=== PATIENT | male | born 1980 | race Asian ===

== ENCOUNTER 2017-11-24 18:00 | Emergency (ER) | payer SELFPAY ==
--- NOTE | 2017-11-24 18:16 | EDPHY ---
General Time Seen by Provider: 11/24/17 18:07 Narrative: CHIEF COMPLAINT: Diarrhea, bloody stools HISTORY OF PRESENT ILLNESS: Patient presents with complaints of diarrhea and bloody stools. He developed diarrhea yesterday. He had 1 episode. He feels that it was blood tinged last night. This morning he awoke and had some abdominal discomfort in the left lower side. He had 3 episodes of diarrhea today which were bloody in the stool. He had no painful bowel movement but did have some lower abdominal pain. Some nausea but no vomiting. No chest pain. No upper abdominal pain. No instrumentation of the rectum. No anticoagulation. No history of anti- inflammatory use, inflammatory bowel or diverticulosis. No other associated complaints or modifying factors REVIEW OF SYSTEMS: 10 systems were reviewed and negative with the exception of the elements mentioned in the history of present illness. PCP: None SPECIALISTS: None PAST MEDICAL HISTORY: None PAST SURGICAL HISTORY: None SOCIAL HISTORY: Nonsmoker. Lives here independently. FAMILY HISTORY: Noncontributory EXAMINATION: General Appearance: Alert, no distress Head: normocephalic, atraumatic Eyes: Pupils equal and round, no conjunctival pallor or injection ENT, Mouth: Mucous membranes moist Neck: Normal inspection, supple, non-tender Respiratory: Lungs are clear to auscultation Cardiovascular: Regular rate and rhythm Gastrointestinal: Abdomen is soft and nondistended. Mild left lower quadrant tenderness. There is no tympany rigidity. No palpable mass or guarding. No CVA tenderness. Bowel sounds present all 4 quadrants. Back: non-tender, no bony abnormalities Neurological: A&O, nonfocal, normal gait Skin: Warm and dry, no rash Extremities: Nontender, no pedal edema Psychiatric: Mood and affect normal DIFFERENTIAL DIAGNOSES: Including but not limited to colitis, diverticulitis, diverticulosis, internal hemorrhoid, external hemorrhoid, inflammatory bowel, irritable bowel MDM: 6:05 p.m. Diarrhea x2 days with 3 episodes of bloody stools over the past 24 hr. He has mild lower abdominal pain but a nonsurgical abdominal examination at this time. Vital signs at checking were mildly tachycardic, on examination he was with normal limits. He is afebrile. He does not meet SIRS criteria. He is not vomiting. No use of anticoagulants. No previous diagnosis of inflammatory bowel or diverticulosis. Laboratory studies pending. 7:00 p.m. Laboratory studies reveal mild leukocytosis without any anemia. Given the patient's confluence of symptoms, I discussed with Dr. Meyers and we are in agreement that CT scan abdomen pelvis is indicated at this time. Patient has consented to this. I have re-evaluated at this time he remains comfortable in no acute distress 7:35 p.m. Notified by radiologist Dr. Berger. We discussed the CT scan findings of the abdomen pelvis. There is evidence of descending colitis. No perforation or abscess. We discussed discharge home with oral antibiotics, pain medication nausea medication. We discussed follow up with primary care physician and GI physician for the tentative care. We discussed ED precautions for fever, increasing pain, intolerance of intake by mouth, constipation. Discussed case with Dr. Meyers. We are all in agreement. The patient is discharged home stable condition. SUPERVISION: Patient was independently examined, but I discussed the case with my secondary supervising physician Dr. Meyers CONSULTATION: None. - History Smoking Status: Never smoked - Objective Vital Signs: Initial Vital Signs Temperature (C) 98.1 F 11/24/17 18:02 Heart Rate 104 H 11/24/17 18:02 Respiratory Rate 18 11/24/17 18:02 Blood Pressure 114/84 H 11/24/17 18:02 O2 Sat (%) 95 11/24/17 18:02 O2 Delivery Mode Room Air Allergies/Adverse Reactions: No Known Allergies Allergy (Unverified 11/24/17 18:01) Home Medications: Medication Instructions Recorded Amoxicillin/Clavulanate Pot 875 mg PO BID #28 tab 11/24/17 [Augmentin 875 MG TAB (*)] Laboratory Results: Laboratory Results 11/24/17 18:15 11/24/17 18:15 Medications Given: Discontinued Medications Hydrocodone Bitart/Acetaminophen ([place] 5/325mg Prepack#6) 1 btl TAKEHOME EDNOW ONE Stop: 11/24/17 19:43 Last Admin: 11/24/17 19:55 Dose: 1 btl Amoxicillin/Clavulanate Potassium (Augmentin 875mg) 875 mg PO EDNOW ONE PRN Reason: Protocol Stop: 11/24/17 19:43 Last Admin: 11/24/17 19:55 Dose: 875 mg Sodium Chloride (Ns) 1,000 mls @ 0 mls/hr IV EDNOW ONE; Wide Open PRN Reason: Protocol Stop: 11/24/17 19:02 Last Admin: 11/24/17 19:20 Dose: 1,000 mls Ondansetron HCl (Zofran Odt 4 Mg Prepack#2) 1 btl TAKEHOME EDNOW ONE Stop: 11/24/17 19:43 Last Admin: 11/24/17 19:55 Dose: 1 btl Departure - Departure Disposition: Home, Routine, Self-Care Clinical Impression: Infective colitis, Hematochezia Condition: Good Instructions: Hydrocodone/Acetaminophen (By mouth), Amoxicillin/Clavulanate Potassium (By mouth), Ondansetron (By mouth), Colitis (ED) Additional Instructions: 1. Augmentin 875 mg twice daily for 14 days as prescribed. Your 1st dose was given here. Your next dose will be due tomorrow morning in you will need to go to the pharmacy to pick this up 2. The hydrocodone pain medication as provided every 4-6 hours as needed for pain. 3. Nausea medication, ondansetron, as provided every 6-8 hours as needed for nausea 4. Contact the primary care physician and GI physician on your chart tomorrow morning for outpatient definitive care 5. Return to emergency department for worsening pain, worsening bleeding, nausea , vomiting fever Referrals: Ehsan Altman MD [Medical Doctor] - As per Instructions Nicola Vang MD [Medical Doctor] - As per Instructions Prescriptions: Amoxicillin/Clavulanate Pot [Augmentin 875 MG TAB (*)] 875 mg PO BID #28 tab
[2017-11-24 18:36] LABS: PLATELET COUNT 230 10^3/uL (150-400)
[2017-11-24 18:57] LABS: INR 0.98 (0.83-1.16); PROTIME(PATIENT) 13.2 SEC (12.0-15.0)
[2017-11-24] MEDS ORDERED: NS 1,000 ML IV ONE (19:01)
[2017-11-24] MEDS ORDERED: IOPAMIDOL (ISOVUE-300) 100 ML BTL ONE (19:05)
[2017-11-24] MEDS ORDERED: ONDANSETRON 4MG PREPACK#2 BTL TAKEHOME ONE (19:42)
[2017-11-24] MEDS ORDERED: AMOXICILLIN/CLAVULANATE POT 875/125 MG TAB PO ONE (19:42)
[2017-11-24] MEDS ORDERED: HYDROCOD/APAP 5/325 PREPACK#6 BTL TAKEHOME ONE (19:42)
[2017-11-24 20:23] VITALS: BP 118/77
== END 2017-11-24 20:00 | disposition home or self-care (01) ==
DX: A09 Infectious gastroenteritis and colitis, unspecified (principal); K92.1 Melena; E86.9 Volume depletion, unspecified
CPT/HCPCS: Q9967